=== PATIENT | male | born 1955 | race Caucasian/White ===

== ENCOUNTER 2020-06-04 07:58 | Outpatient (CLI) | payer BC, SELFPAY ==
--- NOTE | 2020-06-04 16:33 | P.PCNPFT_ITS ---
PFT Interpretation This is a pulmonary function test with pre and post-bronchodilator spirometry, plethysmography and diffusing capacity. The test was performed and results interpreted in accordance with the 2019 and 2005 ATS/ERS Task Force guidelines respectively using the Global Lung Function Initiative-2012 reference equations. Patient demonstrated good effort and c ooperation. Reproducibility criteria were met. The quality of the pre bronchodilator spirometry maneuver was Grade A and post bronchodilator spirometry maneuver was Grade A. Findings: Spirometry: The contour the inspiratory and expiratory flow tracing are normal. The pre bronchodilator FVC is 4.39 L, 88% predicted. The pre bronchodilator FEV1 is 3.04 L, 80% predicted. The FEV1: FVC ratio is 69%. The post bronchodilator FVC is 4.52 L, representing a 3% increase. The post bronchodilator FEV1 is 3.22 L, representing a 6% increase. Plethysmography: The total lung capacity is 8.04 L, 106% predicted. The functional residual capacity is 3.10 L, 77% predicted. The residual volume is 2.93 L, 119% predicted. Diffusing capacity: The absolute diffusion capacity is 31.5, 108% predicted. The diffusing capacity corrected for alveolar volume is 4.97, 125% predicted. Impression: The spirometry is normal without evidence of an obstructive abnormality. There is no significant improvement after inhaling a single dose of albuterol. The lung volumes are normal. The diffusing capacity is normal. There are no prior studies for comparison
== END 2020-06-04 07:59 | disposition home or self-care (01) ==
PROVIDERS: PCP Family Medicine; Visit Provider Family Medicine
DX: R06.00 Dyspnea, unspecified (principal)
CPT/HCPCS: 94060; 94726; 94729

== ENCOUNTER → 2020-09-11 00:12 | Outpatient (CLI) | payer BC, SELFPAY ==
[2020-09-11 19:27] LABS: SARS-CoV-2 RNA PCR Negative
== END ==
PROVIDERS: PCP Family Medicine; Visit Provider Internal Medicine Gastroenterology
DX: Z01.812 Encounter for preprocedural laboratory examination (principal); Z20.822 Contact with and (suspected) exposure to COVID-19
CPT/HCPCS: C9803; U0003; U0005

== ENCOUNTER 2020-09-15 00:47 | Day surgery (SDC) | payer BC, SELFPAY ==
[2020-08-31 13:13] VITALS: BMI 47.5
[2020-09-15 06:57] VITALS: BP 175/96; PULSE 86; RESP 18; TEMP 36.4; O2SAT 96; BMI 48.7
[2020-09-15 07:15] LABS: Glucose Point of Care 135 mg/dl (65-105)
[2020-09-15] MEDS: LACTATED RINGERS 1,000 ML 150 ML IV CONT (07:19)
--- NOTE | 2020-09-15 07:53 | WPDANESEPPF ---
Anes - Initial Pre Proc Eval Procedure: Operation Date: 09/15/20 08:00 Proposed Procedures p Screening Colonoscopy - Rubens Vasques MD Date/Time: 09/15/20 07:53 Surgeon: Rubens Vasques MD Pre Op Diagnosis: hx of colon polyps Patient Data Age: 65 Gender: M Height: 1.85 m Weight: 167.6 kg Last Vital Signs Temp 97.6 F 09/15/20 06:57 Pulse 86 09/15/20 06:57 Resp 18 09/15/20 06:57 BP 175/96 H 09/15/20 06:57 Pulse Ox 96 09/15/20 06:57 Allergies Allergy/AdvReac Type Severity Reaction Status Date / Time atropine Allergy Unknown Palpitation Verified 09/15/20 06:55 s phenobarbital Allergy Unknown Palpitation Verified 09/15/20 06:55 s Home Medications Medication Instructions Recorded Confirmed Type glucosamine sulfate 500 mg tablet 500 mg PO DAILY tablet 09/23/19 09/15/20 History bupropion HCl 300 mg 24 hr tablet, 300 mg PO QAM #90 tablet 12/08/19 09/15/20 Rx extended release albuterol sulfate 90 mcg/actuation 2 puff INHALATION Q4H PRN #18 g 03/02/20 09/15/20 Rx aerosol inhaler lisinopril 20 mg tablet 20 mg PO DAILY #90 tablet 05/17/20 09/15/20 Rx levofloxacin 500 mg tablet 500 mg PO DAILY #10 tablet 05/18/20 09/15/20 Rx metformin 500 mg tablet,extended 500 mg PO DAILY #90 tablet 07/30/20 09/15/20 Rx release 24 hr Laboratory Tests 09/15/20 07:05 POC Capillary Glucose 135 mg/dl H mg/dl (65-105) Patient hx anesthesia problems: none Family hx anesthesia problems: none PMFSH Past Medical History Medical History (Updated 05/18/20 @ 09:56 by Charmaine Lassiter DO) Arthritis Depression Hypertension Sleep apnea Type 2 diabetes mellitus without complications Surgical History Surgical History H/O foot surgery H/O knee surgery H/O sinus surgery H/O umbilical hernia repair Family History Family History Father Family history of malignant neoplasm Social History Social History Smoking packs per day: 1 Smoking cigarettes per day: 20.0 Years smoked: 15 Smoking pack-years: 15.00 Tobacco type: cigarettes Smokeless tobacco user: chewing tobacco Second hand tobacco smoke exposure: Yes Smoking end date: 12/04/00 Alcohol intake: never Substance use: never Substance use type: does not use Living arrangements: with family Gender identity (if verbalized by the patient): Male Spiritual care concerns: No Agree to blood products: Yes Anes - Eval Final PreProcedure Day of Procedure 09/15/20 07:53 Patient weight: morbidly obese Heart: regular rate and rhythm Lungs: clear to auscultation Airway: Mallampati scale class II Neurological: alert and oriented Last oral intake: >/= 8 hours ASA classification: IV Emergent: no Anesthetic plan: proceed Anesthesia type and monitoring: general GIVS and standard monitoring Informed Consent: The patient's anesthetic plan and its attendant risks and benefits were discussed with the patient/family/POA. Questions were solicited and answers provided to the satisfaction of the patient/family/POA.
--- NOTE | 2020-09-15 08:02 | PM.HPGS ---
History of Present Illness History of Present Illness Consent: Risks, benefits, and alternatives have been discussed and questions answered. Patient agrees to proceed with procedure. Chief complaint: hx of colon polyps Narrative: Alfonzo Cuba is a 65 year old male here for colon cancer screening. He has a history of polyps Review of Systems Review of Systems: All systems reviewed & are unremarkable except as noted in HPI and below PMFSH Past Medical History Medical History Arthritis Depression Hypertension Sleep apnea Type 2 diabetes mellitus without complications Surgical History Surgical History H/O foot surgery H/O knee surgery H/O sinus surgery H/O umbilical hernia repair Family History Family History Father Family history of malignant neoplasm Social History Social History Smoking packs per day: 1 Smoking cigarettes per day: 20.0 Years smoked: 15 Smoking pack-years: 15.00 Tobacco type: cigarettes Smokeless tobacco user: chewing tobacco Second hand tobacco smoke exposure: Yes Smoking end date: 12/04/00 Alcohol intake: never Substance use: never Substance use type: does not use Living arrangements: with family Gender identity (if verbalized by the patient): Male Spiritual care concerns: No Agree to blood products: Yes Meds Home Medications and Allergies Home Medications Medication Instructions Recorded Confirmed Type glucosamine sulfate 500 mg tablet 500 mg PO DAILY tablet 09/23/19 09/15/20 History bupropion HCl 300 mg 24 hr tablet, 300 mg PO QAM #90 tablet 12/08/19 09/15/20 Rx extended release albuterol sulfate 90 mcg/actuation 2 puff INHALATION Q4H PRN #18 g 03/02/20 09/15/20 Rx aerosol inhaler lisinopril 20 mg tablet 20 mg PO DAILY #90 tablet 05/17/20 09/15/20 Rx levofloxacin 500 mg tablet 500 mg PO DAILY #10 tablet 05/18/20 09/15/20 Rx metformin 500 mg tablet,extended 500 mg PO DAILY #90 tablet 07/30/20 09/15/20 Rx release 24 hr Allergies Allergy/AdvReac Type Severity Reaction Status Date / Time atropine Allergy Unknown Palpitation Verified 09/15/20 06:55 s phenobarbital Allergy Unknown Palpitation Verified 09/15/20 06:55 s Vital Signs Vital Signs - 24 hr 09/15/20 06:57 Temperature 36.4 C Pulse Rate 86 Respiratory Rate 18 Blood Pressure 175/96 H Pulse Oximetry 96 Exam Const: General: alert Orientation/consciousness: patient oriented x3 Resp: Auscultation: clear to auscultation bilaterally Cardio: Rhythm: regular rhythm GI: GI Palp: Yes Soft to palpation and No Tenderness to palpation present (GI) Neuro: General: patient oriented x3 Assessment and Plan Assessment and plan (1) Screening for colon cancer: Code(s): Z12.11 - Encounter for screening for malignant neoplasm of colon Status: Acute Assessment and Plan: Colonoscopy with possible biopsy or polypectomy or cautery or injection of substances.
[2020-09-15] MEDS: SIMETHICONE ORAL SUSPENSION 20 MG/0.3 ML 30 ML BOTTLE 0.6 ML IRRIGATION (08:13)
[2020-09-15 08:27] VITALS: BP 157/106; PULSE 90; RESP 22; O2SAT 94
[2020-09-15 08:37] VITALS: BP 122/65; PULSE 88; RESP 22; O2SAT 96
[2020-09-15 08:47] VITALS: BP 128/62; PULSE 88; RESP 20; O2SAT 98
== END 2020-09-15 09:01 | disposition home or self-care (01) ==
PROVIDERS: PCP Family Medicine; Visit Provider Internal Medicine Gastroenterology
PROC: 0DJD8ZZ Inspection of Lower Intestinal Tract, Via Natural or Artificial Opening Endoscopic (ICD-10-PCS; CPT 45378; principal; 2020-09-15 08:00)
DX: Z12.11 Encounter for screening for malignant neoplasm of colon (principal); K63.5 Polyp of colon; K57.30 Diverticulosis of large intestine without perforation or abscess without bleeding; G47.30 Sleep apnea, unspecified; I10 Essential (primary) hypertension; E11.9 Type 2 diabetes mellitus without complications; F32.9 Major depressive disorder, single episode, unspecified; Z87.891 Personal history of nicotine dependence; E66.01 Morbid (severe) obesity due to excess calories; Z68.42 Body mass index [BMI] 45.0-49.9, adult; Z79.51 Long term (current) use of inhaled steroids; Z79.84 Long term (current) use of oral hypoglycemic drugs
CPT/HCPCS: 45380; 82948; 88305; J2704; J7120

== ENCOUNTER 2021-07-05 11:07 | Outpatient (CLI) | payer BC, SELFPAY ==
--- NOTE | ~2021-07-05 | XR_ITS ---
XR chest 2V DATE: 07/05/2021 11:31 INDICATION: Hemoptysis TECHNIQUE: PA and lateral views COMPARISON: 09/12/2018 CT chest 03/21/2015 PA and lateral chest FINDINGS: Normal heart size. Mild aortic unfolding. No hilar or mediastinal enlargement. No pulmonary infiltrate or consolidation, pleural effusion or pulmonary vascular congestion or pneumo thorax. Degenerative spurring of the thoracic spine. IMPRESSION: No active cardiopulmonary disease Reviewed, dictated and finalized at location A.
== END 2021-07-05 11:08 | disposition home or self-care (01) ==
PROVIDERS: PCP Family Medicine; Visit Provider Family Medicine
DX: R04.2 Hemoptysis (principal)
CPT/HCPCS: 71046

== ENCOUNTER 2021-08-18 07:59 | Outpatient (CLI) | payer BC, SELFPAY ==
--- NOTE | ~2021-08-18 | MR_ITS ---
EXAMINATION: MR foot LT wo/w con DATE: 08/18/2021 09:25 INDICATION: Left foot pain at the ball of the foot post resection of a neuroma. TECHNIQUE: Magnetic resonance imaging (MRI) of the left fore/mid foot was performed without and with 20 mL Multihance intravenous contrast. Sequences included sagittal T1-weighted FSE, sagittal fluid se nsitive FSE STIR, coronal PD-weighted FS FSE, coronal T1-weighted FSE, axial PD-weighted FS FSE, axia l PD-weighted FSE axial T1-weighted FS FSE and postcontrast axial and coronal T1-weighted FS FSE. COMPARISON: None FINDINGS: 35 degrees hallux valgus. Bone alignment is otherwise normal. Mild polyarticular osteoarthritis at th e first metatarsophalangeal and at several of the tarsal metatarsal and interphalangeal joints. Small region of subarticular edema edema-like and cystlike changes at the articulation between the cuboid and the fourth metatarsal. Additional tiny likely degenerative subchondral cyst at the medial head of the first proximal phalanx. There is a bipartite first metatarsal fibular sesamoid with mild edema a t the proximal moiety consistent with sesamoiditis. Marrow signal is otherwise normal with no fractur e or pathologic marrow replacing process. Lisfranc ligament complex is normal. Collateral ligament co mplex at the metatarsophalangeal and interphalangeal joints are normal. Visualized portions of the fl exor and extensor tendons are normal. There is moderate fatty atrophy of the intrinsic musculature of the foot. Physiologic amount fluid in the joint spaces. No tenosynovitis, bursitis or other abnormal fluid collections identified. No Feliz's neuroma or other abnormally enhancing lesions identified. IMPRESSION: 1. 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 2. Likely sesamoiditis with edema at the proximal moiety of the bipartite fibular sesamoid. 3. No Feliz's neuroma or other abnormally enhancing lesions identified. Reviewed, dictated and finalized at location B. IMPRESSION: 1. 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 2. Likely sesamoiditis with edema at the proximal moiety of the bipartite fibul ar sesamoid. 3. No Feliz's neuroma or other abnormally enhancing lesions identified.
[2021-08-18 08:34] LABS: Estimated Glomerular Filt Rate > 60
== END 2021-08-18 08:00 | disposition home or self-care (01) ==
PROVIDERS: PCP Family Medicine
DX: G57.62 Lesion of plantar nerve, left lower limb (principal); M20.12 Hallux valgus (acquired), left foot; M19.072 Primary osteoarthritis, left ankle and foot
CPT/HCPCS: 73720; A9577

== ENCOUNTER 2023-03-23 04:03 | Day surgery (SDC) | payer BC, SELFPAY ==
[2023-03-01 14:07] VITALS: BMI 47.5
--- NOTE | 2023-03-21 09:49 | SUR.PREOP ---
Patient called regarding upcoming procedure. Reviewed preop instructions, new appointment times, and procedure prep.
--- NOTE | 2023-03-22 13:28 | PC.NURSE ---
CHART REVIEWED BY DR. [place] ANESTHESIA AND OKAY TO PROCEED WITH PROCEDURE.
--- NOTE | 2023-03-22 16:18 | PM.HPGS ---
History of Present Illness History of Present Illness Consent: Risks, benefits, and alternatives have been discussed and questions answered. Patient agrees to proceed with procedure. Chief complaint: Diarrhea,unspecified Narrative: Alfonzo Cuba is a 67 year old male has had gradually worsening diarrhea over the past 3 months.? He occasionally had a somewhat softer loose stool in past but now has anywhere from 3-6 unformed stools per day.? A picture he showed me shows loose broken up yellowish brown stool.? He has not seen blood in his stools.? His primary care physician ordered a fecal fat test which was normal and also occult blood (Fit test)which was negative.? He had a colonoscopy for surveillance of polyps about 2 years ago.? Review of Systems Review of Systems: All systems reviewed & are unremarkable except as noted in HPI and below PMFSH Past Medical History Medical History Anxiety with panic attack Aortic stenosis, severe Dr. Williamson, Dr. Villeda -yearly echo Arthritis Depression Diabetes Diabetic nephropathy Diabetic neuropathy Hypertension Sleep apnea Surgical History Surgical History H/O foot surgery H/O knee surgery H/O sinus surgery H/O umbilical hernia repair Family History Family History Father Family history of malignant neoplasm Social History Social History Smoking packs per day: 1 Smoking cigarettes per day: 20.0 Years smoked: 15 Smoking pack-years: 15.00 Smoking status: Former smoker Tobacco type: cigarettes Smokeless tobacco user: chewing tobacco Second hand tobacco smoke exposure: Yes Smoking end date: 12/04/00 Alcohol intake: never Substance use: never Substance use type: does not use Lack of Transportation: No Lack of Food: Never True Current Housing: I Have Housing Concerned About Future Housing: No Difficulty Paying Gas/Electric Bills: No Difficulty Paying for Meds: No Currently Unemployed: No Education: Trade/Vocational Certificate Difficulty w/ Childcare or Family Care: No Living arrangements: with family Occupation/Education: occupation Gender identity (if verbalized by the patient): Male Spiritual care concerns: No Agree to blood products: Yes Meds Home Medications and Allergies Home Medications Medication Instructions Recorded Confirmed Type cholecalciferol (vitamin D3) 125 125 mcg PO DAILY #90 tabs 06/29/21 03/12/23 Rx mcg (5,000 unit) tablet bupropion HCl 300 mg 24 hr tablet, 300 mg PO QAM #90 tabs 11/15/22 03/12/23 Rx extended release alprazolam 0.25 mg tablet 0.25 mg PO BID PRN anxiety #20 tabs 01/22/23 03/12/23 Rx metoprolol succinate 50 mg 50 mg PO DAILY 01/22/23 03/12/23 History tablet,extended release 24 hr wheat dextrin 5 gram/7.4 gram oral 5 g PO DAILY diarrhea 01/22/23 03/12/23 History powder (Benefiber Healthy Shape) semaglutide 0.25 mg or 0.5 mg (2 0.25 mg (0.368 mL) subcut WEEKLY 02/12/23 03/12/23 Rx mg/3 mL) subcutaneous pen injector #3 mL (Ozempic) sertraline 25 mg tablet 25 mg PO DAILY #30 tabs 02/12/23 03/12/23 Rx glucosamine sulf dipot 2 cap PO DAILY 03/01/23 03/12/23 History chlr,msm,chond 550 mg-C 30 mg-jono 1 mg capsule (Glucosamine Chondroitin) adjuvant AS01E (PF)vial 1 of 2 0.5 ml IM ONCE #1 ea 03/12/23 03/12/23 Rx (Arexvy Adjuvant Component (PF) intramuscular suspension) irbesartan 150 mg tablet 150 mg PO DAILY #90 tabs 03/12/23 03/12/23 Rx metformin 500 mg tablet,extended 500 mg PO DAILY #90 tabs 03/12/23 03/12/23 Rx release 24 hr Allergies Allergy/AdvReac Type Severity Reaction Status Date / Time atropine Allergy Unknown Palpitation Verified 03/23/23 06:49 s phenobarbital Allergy Unknown Palpitation Verified 03/23/23 0
[2023-03-23 06:51] VITALS: BP 126/79; PULSE 83; RESP 20; TEMP 36.2; O2SAT 96
[2023-03-23] MEDS: LACTATED RINGERS 1,000 ML 150 ML IV CONT (07:03)
[2023-03-23 07:06] LABS: Glucose Point of Care 137 mg/dl (65-105)
--- NOTE | 2023-03-23 08:06 | WPDANESEPPF ---
Anes - Initial Pre Proc Eval Procedure: Operation Date: 03/23/23 08:00 Proposed Procedures p Colonoscopy - Rubens Vasques MD Date/Time: 03/23/23 08:06 Surgeon: Rubens Vasques MD Pre Op Diagnosis: Diarrhea,unspecified Patient Data Age: 67 Gender: M Height: 1.85 m Weight: 158.8 kg Last Vital Signs Temp 97.2 F L 03/23/23 06:51 Pulse 83 03/23/23 06:51 Resp 20 03/23/23 06:51 BP 126/79 03/23/23 06:51 Pulse Ox 96 03/23/23 06:51 O2 Del Method Room Air 03/23/23 06:51 Allergies Allergy/AdvReac Type Severity Reaction Status Date / Time atropine Allergy Unknown Palpitation Verified 03/23/23 06:49 s phenobarbital Allergy Unknown Palpitation Verified 03/23/23 06:49 s clonazepam AdvReac weepy 30 Verified 03/23/23 06:49 years ago Home Medications Medication Instructions Recorded Confirmed Type cholecalciferol (vitamin D3) 125 125 mcg PO DAILY #90 tabs 06/29/21 03/12/23 Rx mcg (5,000 unit) tablet bupropion HCl 300 mg 24 hr tablet, 300 mg PO QAM #90 tabs 11/15/22 03/12/23 Rx extended release alprazolam 0.25 mg tablet 0.25 mg PO BID PRN anxiety #20 tabs 01/22/23 03/12/23 Rx metoprolol succinate 50 mg 50 mg PO DAILY 01/22/23 03/12/23 History tablet,extended release 24 hr wheat dextrin 5 gram/7.4 gram oral 5 g PO DAILY diarrhea 01/22/23 03/12/23 History powder (Benefiber Healthy Shape) semaglutide 0.25 mg or 0.5 mg (2 0.25 mg (0.368 mL) subcut WEEKLY 02/12/23 03/12/23 Rx mg/3 mL) subcutaneous pen injector #3 mL (Ozempic) sertraline 25 mg tablet 25 mg PO DAILY #30 tabs 02/12/23 03/12/23 Rx glucosamine sulf dipot 2 cap PO DAILY 03/01/23 03/12/23 History chlr,msm,chond 550 mg-C 30 mg-jono 1 mg capsule (Glucosamine Chondroitin) adjuvant AS01E (PF)vial 1 of 2 0.5 ml IM ONCE #1 ea 03/12/23 03/12/23 Rx (Arexvy Adjuvant Component (PF) intramuscular suspension) irbesartan 150 mg tablet 150 mg PO DAILY #90 tabs 03/12/23 03/12/23 Rx metformin 500 mg tablet,extended 500 mg PO DAILY #90 tabs 03/12/23 03/12/23 Rx release 24 hr Laboratory Tests 03/23/23 06:56 POC Capillary Glucose 137 H mg/dl (65-105) Patient hx anesthesia problems: none Family hx anesthesia problems: none Results Review: All pre-operative results and documents have been reviewed as part of the pre-operative evaluation. [facility] Past Medical History Medical History Anxiety with panic attack Aortic stenosis, severe Dr. Williamson, Dr. Hou -yearly echo Arthritis Depression Diabetes Diabetic nephropathy Diabetic neuropathy Hypertension Sleep apnea Surgical History Surgical History H/O foot surgery H/O knee surgery H/O sinus surgery H/O umbilical hernia repair Family History Family History Father Family history of malignant neoplasm Social History Social History Smoking packs per day: 1 Smoking cigarettes per day: 20.0 Years smoked: 15 Smoking pack-years: 15.00 Smoking status: Former smoker Tobacco type: cigarettes Smokeless tobacco user: chewing tobacco Second hand tobacco smoke exposure: Yes Smoking end date: 12/04/00 Alcohol intake: never Substance use: never Substance use type: does not use Lack of Transportation: No Lack of Food: Never True Current Housing: I Have Housing Concerned About Future Housing: No Difficulty Paying Gas/Electric Bills: No Difficulty Paying for Meds: No Currently Unemployed: No Education: Trade/Vocational Certificate Difficulty w/ Childcare or Family Care: No Living arrangements: with family Occupation/Education: occupation Gender identity (if verbalized by the patient): Male Spiritual care concerns: No Agree to blood products: Yes Barbara
[2023-03-23 08:26] VITALS: BP 110/64; PULSE 80; RESP 21; O2SAT 97
[2023-03-23 08:36] VITALS: BP 124/68; PULSE 80; RESP 24; O2SAT 97
[2023-03-23 08:40] VITALS: BP 104/56; PULSE 84; RESP 18; O2SAT 97
== END 2023-03-23 08:51 | disposition home or self-care (01) ==
PROVIDERS: PCP Physician Assistant Medical; Visit Provider Internal Medicine Gastroenterology
PROC: 0DJD8ZZ Inspection of Lower Intestinal Tract, Via Natural or Artificial Opening Endoscopic (ICD-10-PCS; CPT 45378; principal; 2023-03-23 08:00)
DX: Z12.11 Encounter for screening for malignant neoplasm of colon (principal); Z86.010 Personal history of colon polyps; K52.9 Noninfective gastroenteritis and colitis, unspecified; K57.30 Diverticulosis of large intestine without perforation or abscess without bleeding; E11.9 Type 2 diabetes mellitus without complications; I10 Essential (primary) hypertension; I35.0 Nonrheumatic aortic (valve) stenosis; Z87.891 Personal history of nicotine dependence
CPT/HCPCS: 45378; 82948; J2704; J7120